=== PATIENT | male | born 1995 ===

== ENCOUNTER 2022-01-27 20:47 | Inpatient (IN) | payer MEDICARE, MEDICAID ==
[2022-01-27] MEDS ORDERED: ACETAMINOPHEN TAB 325 MG TAB PO PRN (23:21)
[2022-01-27] MEDS ORDERED: MAG HYDROX/AL HYDROX/SIMETH 30 ML CUP PO PRN (23:21)
[2022-01-27] MEDS ORDERED: MAGNESIUM HYDROXIDE 2,400 MG/10 ML CUP PO PRN (23:21)
[2022-01-27] MEDS ORDERED: hydrOXYzine HCL 50 MG/ML 1 ML VIAL IM PRN (23:23)
[2022-01-27] MEDS ORDERED: OLANZapine 10 MG VIAL IM PRN (23:23)
[2022-01-27] MEDS ORDERED: OLANZapine 5 MG TAB PO PRN (23:23)
[2022-01-27] MEDS ORDERED: hydrOXYzine pamoate 25 MG CAP PO PRN (23:23)
[2022-01-28] MEDS: NICOTINE 14MG/24HR PATCH TRANSDERM SCH (07:54)
[2022-01-28] MEDS ORDERED: DIVALPROEX 250 MG TABLET.DR PO SCH (09:00)
[2022-01-28] MEDS ORDERED: ARIPiprazole 10 MG TAB PO SCH (09:00)
[2022-01-28] MEDS ORDERED: OLANZapine 2.5 MG TAB PO STA (11:51)
--- NOTE | 2022-01-28 13:47 | P.HP ---
Psychiatric H&P - . H&P Date: 01/28/22 History & Physical: Allergies Allergy/AdvReac Type Severity Reaction Status Date / Time haloperidol [From Haldol] Allergy Unknown Verified 01/27/22 23:21 Vital Signs Temp 96.9 F L 01/28/22 05:22 Pulse 97 01/28/22 05:22 Resp 18 01/28/22 05:22 BP 116/72 01/28/22 05:22 Pulse Ox 98 01/28/22 05:22 FiO2 Intake & Output 01/27/22 01/28/22 01/28/22 18:59 06:59 18:59 Weight 63.5 kg Laboratory Last Values TSH 3.940 mIU/L (0.465-4.680) 01/28/22 09:11 01/28/22 13:47 IDENTIFYING DATA: Patient is a single, unemployed on SSI, 26-year-old male with significant history of polysubstance abuse and schizoaffective disorder who presents to our hospital from [facility] under petition and certification for psychotic behavior. HPI: Patient presented to the hospital on 01/27/2022, brought in from [facility] under petition certification for bizarre behavior. As per petition filled out by the special police officer, the patient reported that "Derrick is hallucinating and talking to himself. He has referenced several times. He could not remember his name on location at the scene. As per initial certification filled out by the emergency physician, the patient is reported to be having auditory and visual hallucinations and responding to internal stimuli. Upon evaluation on the psychiatric unit, the patient is currently denying any suicidal or homicidal ideation, intention, and/or plan. The patient reports that he was acting bizarre in her knowledge as this. He states that he was having a conversation with himself regarding the use of plastics and how they may replace current currency. He does acknowledge that he was doing this outside of the [facility] which caused people to feel concerned about his mental well- being. He reports recent crack cocaine use however denies that he was under the influence of crack cocaine at the time. He does report that he was likely "high for marijuana. " Upon evaluation on our psychiatric unit, the patient is currently not reporting any paranoid delusions or visual hallucinations. He does however report auditory hallucinations in the form of "God talking to me." He states that God tells him things when he prays. He states that this is as if this provider is speaking to him as well. He is otherwise not reporting any other delusional thoughts at this time. In regards to recent stressors, the patient reports that he was in custodial for one month and has been homeless since being out of custodial. He also reports that prior to coming to this hospital, he was in [place] for 6 days. He is agreeable to sign himself voluntarily to the psychiatric unit and to start medications. He reports a desire to go to inpatient substance abuse rehabilitation for his crack cocaine use after this admission. PAST PSYCHIATRIC HISTORY: Patient states that he has presented diagnosed with schizoaffective disorder, bipolar type. The patient recalls being previously prescribed Depakote, Abilify, Haldol, and lithium. Reports "30-40 inpatient psychiatric admissions." He states that his last inpatient admission was at [facility]. The patient reports 3 prior attempts at suicide including jumping in front of a truck, lying down on the road, and attempting to drown himself in the day emmanuel. PMH: No reported medical history or concerns as per patient ALLERGIES: Haloperidol CHEMICAL DEPENDENCY HISTORY: The patient reports that he smokes a half a pack per day of tobacco. He denies any alcohol use. He reports he uses marijuana twice per week. He states that he uses crack cocaine every week. He first began using crack cocaine when he was 23 years old. He reports that he has been in inpatient rehab for his crack cocaine use at least 12 times. FAMILY PSYCHIATRIC/SUBSTANCE USE HISTORY: No reported family psychiatric history. SOCIAL HISTORY: Patient was born in [place] and raised in [place], [place]. The patient is single, never , and has no children. He currently rec eives Social Security. He is currently homeless and spends his time either living in a three-quarter house, custodial, rehab, or psychiatric units. He states that he is a Protestant. He reports no ongoing legal issues at this time however does report a history of incarceration for assaulting a special police officer. MENTAL STATUS EXAM: General Appearance: Patient appears to be stated age is alert, directable, and attempts to cooperate. Patient appears to have fair hygiene and grooming. Behavior: Patient is seated without any agitated behavior. Slightly elevated psychomotor activity. Speech: Patient's speech is fluent and nonpressured. Mood/Affect: Patient reports their mood is "feeling okay," affect is congruent and slightly expansive. Suicidality/Homicidality: Patient is vehemently denying any suicidal or homicidal ideation. Perceptions: Patient denies any visual hallucinations ever, the patient does endorse auditory hallucinations in the form of "God speaks to me." Though content/process: Patient does have some scientologist preoccupation however no other delusional thought content is endorsed. Thought process appears to be linear and logical otherwise. Memory and concentration: AOX3, grossly intact for the purposes of this session. Can spell "WORLD" backwards Judgment and insight: Fair STRENGTHS/WEAKNESSES: Strength is that the patient is resilient and resourceful. Weakness is that the patient engages in frequent crack cocaine use. INTELLECT: average IMPRESSIONS: Schizoaffective disorder, bipolar type Cocaine use disorder Tobacco use disorder PLAN: -Patient is admitted under involuntary however converted to voluntary status to MHU for stabilization of psychiatric symptoms and safety. Patient signed adult voluntary form and medication consent and is placed in patient's chart. -Medications : Will start patient on Depakote 500 mg by mouth twice a day for mood stabilization Zyprexa 2.5 mg by mouth every morning and 5 mg by mouth daily at bedtime for mood stabilization/psychosis -Vistaril and Zyprexa PRN for agitation/aggression -Patient was counselled on substance abuse and desired to cut back on use -Patient was informed of the risks, benefits and side effects of the medication and patient verbally consented to taking the medications. Patient signed med consent form and was placed in chart. -Internal Medicine consult to perform medical evaluation and physical. -NRT - nicotine patch -SW on board for discharge planning. Encourage patient to participate in groups to work on coping skills.
[2022-01-28 16:28] LABS: Chol/HDL Ratio 2.77 Ratio; LDL Cholesterol,Calculated 48.2 mg/dL (0.0-131.0)
[2022-01-28] MEDS: DIVALPROEX 500 MG TABLET.DR PO SCH (19:42)
[2022-01-28] MEDS ORDERED: OLANZapine 5 MG TAB PO SCH (21:00)
--- NOTE | 2022-01-29 06:50 | P.MDCNMH ---
History of Present Illness H&P Date: 01/28/22 Chief Complaint: Aggressive behavior 26-year-old male with schizophrenia, bipolar disorder Patient is currently homeless there was brought in for evaluation due to aggressive behavior patient denies any homicidal or suicidal ideation at this time he denies any hallucinations. He denies any medical concerns denies any fevers chills nausea vomiting chest pain trouble breathing coughing He admits to tobacco smoking denies any illicit drugs or alcohol Review of Systems Pertinent positives as noted in HPI. All other systems were reviewed and are negative Past Medical History Smoking Status: Current every day smoker - Past Family History Family Additional Family Medical History / Comment(s): Denies any history of coronary artery disease Medications and Allergies Home Medications Medication Instructions Recorded Confirmed Type ARIPiprazole [Abilify] 10 mg PO DAILY 01/27/22 01/27/22 History Divalproex [Depakote] 250 mg PO TID 01/27/22 01/27/22 History Allergies Allergy/AdvReac Type Severity Reaction Status Date / Time haloperidol [From Haldol] Allergy Unknown Verified 01/27/22 23:21 Physical Exam Constitutional: No acute distress, conversant, pleasant Eyes: Anicteric sclerae, moist conjunctiva, Pupils equal round reactive to light ENMT: NC/AT Oropharynx clear, no erythema, or exudates Neck: Supple, FROM, no masses, or JVD No carotid bruits No thyromegaly Lungs: Clear to auscultation Clear to percussion Normal respiratory effort, no accessory muscle use Cardiovascular: Heart regular in rate and rhythm, No murmurs, gallops, or rubs No peripheral edema Abdominal: Soft Nontender, no guarding, rebound or rigidity Abdomen moving with respiration Normoactive bowel sounds No hepatomegaly, No splenomegaly No palpable mass No abdominal wall hernia noted Skin: Normal temperature, tone, texture, turgor No induration No subcutaneous nodules No rash, lesions No ulcers Extremities: No digital cyanosis No clubbing Pedal pulses intact and symmetrical Radial pulses intact and symmetrical No calf tenderness Psychiatric: Alert and oriented to person, place and time Neuro Muscles Strength 5/5 in all 4 extremities Sensation to light touch grossly present throughout Cranial nerves II-XII grossly intact No focal sensory deficits Lymphatics: no palpable cervical or supraclavicular , or inguinal lymph nodes Cranial Nerve Examination - Cranial Nerves Cranial Nerve II- Optic: Intact Cranial Nerve III- Oculomotor: Intact Cranial Nerve IV- Trochlear: Intact Cranial Nerve V- Trigeminal: Intact Cranial Nerve - Abducens: Intact Cranial Nerve VII- Facial: Intact Cranial Nerve VIII- Auditory: Intact Cranial Nerve IX- Glossopharyngeal: Intact Cranial Nerve X- Vagus: Intact Cranial Nerve XI- Accessory: Intact Cranial Nerve XII- Hypoglossal: Intact Results Labs: Abnormal Lab Results - Last 24 Hours (Table) 01/28/22 Range/Units 09:11 HDL Cholesterol 39.40 L (40.00-60.00) mg/dL Assessment and Plan Assessment: Schizophrenia bipolar disorder Aggressive behavior Management per psych Tobacco smoking counseled to quit smoking Follow-up labs Thank you for allowing us to participate in the care of this patient. We will follow peripherally. Do not hesitate to contact us with questions. Someone can be reached from the [facility] hospitalist group at all hours of the day at [phone].
[2022-01-29] MEDS: NICOTINE 14MG/24HR PATCH TRANSDERM SCH (07:56)
[2022-01-29] MEDS: DIVALPROEX 500 MG TABLET.DR PO SCH ×2 (07:57→20:00)
[2022-01-29] MEDS: MULTIVITAMINS, THERA 1 EACH TAB PO SCH (07:57)
[2022-01-29] MEDS ORDERED: OLANZapine 5 MG TAB PO STA (09:40)
--- NOTE | 2022-01-29 11:39 | P.PN ---
Progress Note - Text Progress Note Date: 01/29/22 Interval History: Patient was seen attending groups and was directable and agreeable to speak with ad copy writer in the office. Currently, the patient is denying any suicidal or homicidal ideation, intention, and/or plan. The patient continues to report that he is able to talk to God however is not reporting any other delusional thoughts or any other hallucinations. He has been adherent with his medications and is not reporting any significant side effects. He reports an improved appetite and improved sleep. The patient states that he wants to be an EMT in the future and is inquiring whether he can be one if he has a felony record. Mental Status Exam: General Appearance: Patient appears to be stated age is alert, directable, and cooperative. Behavior: Patient is calmly seated without any agitated behavior. Speech: Patient's speech is fluent and nonpressured. Mood/Affect: Mood is improving mildly, affect is congruent and expansive. Suicidality/Homicidality: Patient denies having any suicidal or homicidal ideation intent or plan. Perceptions: Patient denies any visual hallucinations but continues to report auditory hallucinations. Though content/process: She continues to have some voodoo preoccupation however is mostly linear and logical in conversation. Memory and concentration: AOX3, grossly intact for the purposes of this session Judgment and insight: Improving mildly Vital Signs Temp 97.4 F L 01/29/22 06:35 Pulse 74 01/29/22 06:35 Resp 16 01/29/22 06:35 BP 130/60 01/29/22 06:35 Pulse Ox 98 01/28/22 05:22 FiO2 Laboratory Results - Last 24 Hours 01/28/22 01/28/22 09:11 09:[address] Glu mg/dL 110 Hemoglobin A1c 5.5 Triglycerides 107.00 Cholesterol 109.00 LDL Cholesterol, Calc 48.2 VLDL Cholesterol, Calc 21.40 HDL Cholesterol 39.40 L Cholesterol/HDL Ratio 2.77 Assessment Schizoaffective disorder, bipolar type Cocaine use disorder Tobacco use disorder Plan: -Patient continues to meet criteria for inpatient psychiatric admission for symptom stabilization and safety. Patient has signed adult voluntary form and medication consent and was placed in patient's chart. -Medications: Depakote 500 mg by mouth twice a day for mood stabilization Zyprexa 5 mg by mouth twice a day for mood stabilization/psychosis -When necessary Vistaril and Zyprexa for agitation/aggression. -NRT - nicotine patch -SW on board for discharge planning. Encouraged the patient to participate in milieu.
[2022-01-29] MEDS: OLANZapine 5 MG TAB PO SCH (20:00)
[2022-01-30] MEDS: MULTIVITAMINS, THERA 1 EACH TAB PO SCH (07:52)
[2022-01-30] MEDS: NICOTINE 14MG/24HR PATCH TRANSDERM SCH (07:52)
[2022-01-30] MEDS: DIVALPROEX 500 MG TABLET.DR PO SCH ×2 (07:52→21:07)
[2022-01-30] MEDS: OLANZapine 5 MG TAB PO SCH ×2 (07:52→21:07)
[2022-01-30 10:35] LABS: ALT 15 U/L (4-49); AST 23 U/L (17-59); African American GFR (CKD) >90 (>60 ml/min/1.73 sqM); Albumin 4.1 g/dL (3.5-5.0); Alkaline Phosphatase 89 U/L (38-126); Anion Gap 13 mmol/L; Blood Urea Nitrogen 15 mg/dL (9-20); Calcium 9.2 mg/dL (8.4-10.2); Carbon Dioxide 29 mmol/L (22-30); Chloride 98 mmol/L (98-107); Glucose 77 mg/dL (74-99); Non-African American GFR(CKD) >90 (>60 ml/min/1.73 sqM); Sodium 140 mmol/L (137-145); Total Bilirubin 0.3 mg/dL (0.2-1.3); Total Protein 7.1 g/dL (6.3-8.2)
[2022-01-30 10:40] LABS: Valproic Acid (Depakene) 107.8 ug/mL
--- NOTE | 2022-01-30 11:17 | P.PN ---
Progress Note - Text Progress Note Date: 01/30/22 Interval History: Patient was seen attending groups and was directable and agreeable to speak with promotion writer in the office. The patient reports that he is doing well. He is currently denying any suicidal or homicidal ideation, intention, and/or plan. He continues to report that he is able to talk to God but otherwise is not reporting any other psychotic thought content. He has been adherent with his medication and is not reporting any significant side effects. He has been participating both in individual and milieu therapies with the high-level participation. The patient is scheduled for an intake at [facility] for rehabilitation for his cocaine use on Wednesday. Mental Status Exam: General Appearance: Patient appears to be stated age is alert, directable, and cooperative. Behavior: Patient is calmly seated without any agitated behavior. Speech: Patient's speech is fluent and nonpressured. Mood/Affect: Mood is improving mildly, affect is congruent and expansive. Suicidality/Homicidality: Patient denies having any suicidal or homicidal ideation intent or plan. Perceptions: Patient denies any visual hallucinations but continues to report auditory hallucinations. Though content/process: She continues to have some restoration preoccupation however is mostly linear and logical in conversation. Memory and concentration: AOX3, grossly intact for the purposes of this session Judgment and insight: Fair Vital Signs Temp 96.9 F L 01/30/22 07:08 Pulse 64 01/30/22 07:08 Resp 18 01/30/22 07:08 BP 116/72 01/30/22 07:08 Pulse Ox 98 01/29/22 20:01 FiO2 Laboratory Results - Last 24 Hours 01/30/22 09:32 Sodium 140 Potassium 5.0 Chloride 98 Carbon Dioxide 29 Anion Gap 13 BUN 15 Creatinine 0.93 Est GFR (CKD-EPI)AfAm >90 Est GFR (CKD-EPI)NonAf >90 Glucose 77 Calcium 9.2 Total Bilirubin 0.3 AST 23 ALT 15 Alkaline Phosphatase 89 Total Protein 7.1 Albumin 4.1 Valproic Acid 107.8 Assessment Schizoaffective disorder, bipolar type Cocaine use disorder Tobacco use disorder Plan: -Patient continues to meet criteria for inpatient psychiatric admission for symptom stabilization and safety. Patient has signed adult voluntary form and medication consent and was placed in patient's chart. -Medications: We will decrease Depakote to 250 mg in the morning and 500 mg at bedtime due to an elevated valproic acid. Zyprexa 5 mg by mouth twice a day for mood stabilization/psychosis -When necessary Vistaril and Zyprexa for agitation/aggression. -NRT - nicotine patch -SW on board for discharge planning. Encouraged the patient to participate in milieu.
[2022-01-31] MEDS: NICOTINE 14MG/24HR PATCH TRANSDERM SCH (08:14)
[2022-01-31] MEDS: MULTIVITAMINS, THERA 1 EACH TAB PO SCH (08:14)
[2022-01-31] MEDS: DIVALPROEX 250 MG TABLET.DR PO SCH (08:14)
[2022-01-31] MEDS: OLANZapine 5 MG TAB PO SCH (08:14)
--- NOTE | 2022-01-31 12:31 | P.PN ---
Subjective Progress Note Date: 01/31/22 Principal diagnosis: polysubstance abuse and schizoaffective disorder Subjective: The patient says that he is hopeful about the rehab. He says when he uses cocaine he feels good about himself until he comes down again. He knows that it is going to be difficult to stay off. He was wondering how he gets from this hospital to the rehab facility. (This shows some forward thinking in practical solution of problems).. He did ask if his Zyprexa could be increased says he has racing thoughts some anxiety and still feels some paranoia. He denies suicidality. Objective: He talks a little loud a lot of gestures but came readily. Affect is tense. Content made sense. He was carrying a Bible" and a book and said he is trying to get back on track with his connor. He is alert, reasonable response times, sat throughout the session without restlessness. No signs of psychosis. Assessment: He has a strong history of psychosis in the past course using drugs doesn't help any as I can make it look psychotic too. He seems to be calming down and starting to commit to the process of rehab. Plan: No change except increase the Zyprexa at night Objective - Vital Signs Vital signs: Vital Signs Temp 97.8 F 01/31/22 05:29 Pulse 113 H 01/31/22 05:29 Resp 16 01/31/22 05:29 BP 119/66 01/31/22 05:29 Pulse Ox 99 01/31/22 05:29 FiO2 - Labs CBC & Chem 7: 01/30/22 09:32
[2022-01-31] MEDS: DIVALPROEX 500 MG TABLET.DR PO SCH (20:58)
[2022-01-31] MEDS: OLANZapine 10 MG TAB PO SCH (20:58)
[2022-02-01] MEDS: MULTIVITAMINS, THERA 1 EACH TAB PO SCH (08:41)
[2022-02-01] MEDS: OLANZapine 5 MG TAB PO SCH (08:41)
[2022-02-01] MEDS: NICOTINE 14MG/24HR PATCH TRANSDERM SCH (08:42)
[2022-02-01] MEDS: DIVALPROEX 250 MG TABLET.DR PO SCH (09:06)
--- NOTE | 2022-02-01 09:22 | P.PN ---
Subjective Progress Note Date: 02/01/22 Principal diagnosis: polysubstance abuse and schizoaffective disorder Subjective: The patient says that he is hopeful about the rehab. He tolerated the increase in Zyprexa last night. His Depakote level is fine so I didn't touched that the 2 together helping him calm down. Denies any suicidal thoughts. Is appropriately anxious about his future and doing well but hopeful as well. Objective: He was cooperative, had good eye contact, does not seem to have the pressured speech she had yesterday stays on topic better.. Affect is serious but not tense. Content makes sense. He is alert, has reasonable response times, sat throughout the session without restlessness. No signs of psychosis. Assessment: His psychosis seems to be under good control he does not seem to be nervous or pacing or having severe withdrawal. He seems to be calming down and starting to commit to the process of rehab. Plan: Continue Zyprexa 5 in the morning and 10 at night eventually move that to just 15 at night continue Depakote as is. Objective - Vital Signs Vital signs: Vital Signs Temp 97.9 F 02/01/22 06:37 Pulse 55 L 02/01/22 06:37 Resp 14 02/01/22 06:37 BP 120/55 02/01/22 06:37 Pulse Ox 99 01/31/22 05:29 FiO2 - Labs CBC & Chem 7: 01/30/22 09:32
[2022-02-01] MEDS: DIVALPROEX 500 MG TABLET.DR PO SCH (20:55)
[2022-02-01] MEDS: OLANZapine 10 MG TAB PO SCH (20:56)
[2022-02-02] MEDS: OLANZapine 5 MG TAB PO SCH (08:59)
[2022-02-02] MEDS: DIVALPROEX 250 MG TABLET.DR PO SCH (08:59)
[2022-02-02] MEDS: NICOTINE 14MG/24HR PATCH TRANSDERM SCH (08:59)
[2022-02-02] MEDS: MULTIVITAMINS, THERA 1 EACH TAB PO SCH (08:59)
--- NOTE | 2022-02-02 12:23 | P.PN ---
Progress Note - Text Progress Note Date: 02/02/22 Interval History: Patient was seen attending groups and was directable and agreeable to speak with expert medical writer in the office. The patient continues to report that he is doing well. He reports that the weekend went well. He is not reporting any suicidal or homicidal ideation, intention, and/or plan. He is not reporting any auditory or visual hallucinations. He has been adherent with his medications and is not reporting any significant side effects. He is scheduled for intake at rehab tomorrow morning. Mental Status Exam: General Appearance: Patient appears to be stated age is alert, directable, and cooperative. Behavior: Patient is calmly seated without any agitated behavior. Speech: Patient's speech is fluent and nonpressured. Mood/Affect: Mood is improving mildly, affect is congruent and euthymic. Suicidality/Homicidality: Patient denies having any suicidal or homicidal ideation intent or plan. Perceptions: Patient denies any visual hallucinations but continues to report auditory hallucinations. Though content/process: He reports no delusional thought content today. He is linear and logical in short conversation. Memory and concentration: AOX3, grossly intact for the purposes of this session Judgment and insight: Fair Vital Signs Temp 97.9 F 02/01/22 06:37 Pulse 55 L 02/01/22 06:37 Resp 14 02/01/22 06:37 BP 120/55 02/01/22 06:37 Pulse Ox 99 01/31/22 05:29 FiO2 Assessment Schizoaffective disorder, bipolar type Cocaine use disorder Tobacco use disorder Plan: -Patient continues to meet criteria for inpatient psychiatric admission for symptom stabilization and safety. Patient has signed adult voluntary form and medication consent and was placed in patient's chart. -Medications: Depakote 250 mg in the morning and 500 mg at bedtime due to an elevated valproic acid. Zyprexa 5 mg by mouth in the morning and 10 mg at bedtime for mood stabilization/psychosis -When necessary Vistaril and Zyprexa for agitation/aggression. -NRT - nicotine patch -SW on board for discharge planning. Encouraged the patient to participate in milieu.
[2022-02-02] MEDS: OLANZapine 10 MG TAB PO SCH (20:03)
[2022-02-02] MEDS: DIVALPROEX 500 MG TABLET.DR PO SCH (20:03)
[2022-02-03 07:12] VITALS: BP 124/77; PULSE 61; RESP 17; TEMP 98.6
[2022-02-03] MEDS: OLANZapine 5 MG TAB PO SCH (08:15)
[2022-02-03] MEDS: MULTIVITAMINS, THERA 1 EACH TAB PO SCH (08:15)
[2022-02-03] MEDS: DIVALPROEX 250 MG TABLET.DR PO SCH (08:15)
[2022-02-03] MEDS: NICOTINE 14MG/24HR PATCH TRANSDERM SCH (08:16)
--- NOTE | 2022-02-03 11:32 | P.DS ---
Providers Date of admission: 01/27/22 23:00 Expected date of discharge: 02/03/22 Attending physician: Asad Charles MD Consults: 01/27/22 23:21 Consult Physician Routine Consulting Provider: Myron Goldman Consult Reason/Comments: H&P and medical Do you want consulting provider notified?: Yes Primary care physician: Stated None - Discharge Diagnosis(es) (1) Schizoaffective disorder, bipolar type Status: Acute Priority: High (2) Cocaine use disorder Status: Chronic Priority: Medium (3) Tobacco use disorder Status: Chronic Priority: Medium Hospital Course: Admission HPI: Patient is a single, unemployed on SSI, 26-year-old male with significant history of polysubstance abuse and schizoaffective disorder who pres ents to our hospital from [facility] under petition and certification for psychotic behavior. Patient presented to the hospital on 01/27/2022, brought in from [facility] under petition certification for bizarre behavior. As per petition filled out by the police officer crime prevention, the patient reported that "Derrick is hallucinating and talking to himself. He has referenced several times. He could not remember his name on location at the scene. As per initial certification filled out by the emergency physician, the patient is reported to be having auditory and visual hallucinations and responding to internal stimuli. Upon evaluation on the psychiatric unit, the patient is currently denying any suicidal or homicidal ideation, intention, and/or plan. The patient reports that he was act ing bizarre in her knowledge as this. He states that he was having a conversation with himself regarding the use of plastics and how they may replace current currency. He does acknowledge that he was doing this outside of the [facility] which caused people to feel concerned about his mental well-being. He reports recent crack cocaine use however denies that he was under the influence of crack cocaine at the time. He does report that he was likely "high for marijuana. " Upon evaluation on our psychiatric unit, the patient is currently not reporting any paranoid delusions or visual hallucinations. He does however report auditory hallucinations in the form of "God talking to me." He states that God tells him things when he prays. He states that this is as if this provider is speaking to him as well. He is otherwise not reporting any other delusional thoughts at this time. In regards to recent stressors, the patient reports that he was in long-term for one month and has been homeless since being out of long-term. He also reports that prior to coming to this hospital, he was in [place] for 6 days. He is agreeable to sign himself voluntarily to the psychiatric unit and to start medications. He reports a desire to go to inpatient substance abuse rehabilitation for his crack cocaine use after this admission. Patient states that he has presented diagnosed with schizoaffective disorder, bipolar type. The patient recalls being previously prescribed Depakote, Abilify, Haldol, and lithium. Reports "30-40 inpatient psychiatric admissions." He states that his last inpatient admission was at [facility]. The patient reports 3 prior attempts at suicide including jumping in front of a truck, lying down on the road, and attempting to drown himself in the day emmanuel. Hospital course: Upon admission to the unit patient was initially cooperative albeit expansive with elevated psychomotor activity. Patient was however directable and agreeable to commence treatment. Patient got along well with other patients on the unit and followed unit protocol. Patient was compliant with the medications and denied any side effects throughout hospital course. Patient was started on Depakote and Zyprexa for mood stabilization and psychosis. Patient spoke of his stressors and engaged in therapy both group and individual. Patient was also seen by medical team for history and physical exam. We'll request the hospitalization, the patient's medications were gradually titrated to stabilize his mood. Depakote level was elevated and therefore his Depakote was decreased to final dose of 2050 mg in the morning and 500 mg at bedtime. On this regimen of Depakote and Zyprexa, the patient is but significant improvement in regards his target symptoms of fatimah. On the day of discharge, the patient is not reporting any suicidal or homicidal ideation, intention, and/or plan. He is not reporting any access to firearms or other weapons. He denies any auditory or visual hallucinations. He reports no paranoia or other delusions. The patient has been adherent with his medication is not reporting any significant side effects. The patient does have a significant history of crack cocaine use and w as counseled at great length on abstaining from all substances including alcohol and marijuana. The patient was agreeable to going to inpatient substance abuse rehabilitation after discharge. He will be going to [facility]. The patient was counseled on his medications and the need for regular compliance and was encouraged to follow-up with his outpatient appointments for mental health and for primary care. Prior to discharge, family meeting was arranged by social welfare administrator to answer any questions and ensure safety. Mental status exam: General Appearance: Patient appears to be stated age is alert, pleasant, and cooperative. Patient is in no acute distress and has fair hygiene and grooming. Short and thin build. Behavior: Patient is calmly seated without any agitated behavior. Speech: Patient's speech is fluent and nonpressured. Mood/Affect: Patient reports their mood is "good", affect is congruent and euthymic to bright. Suicidality/Homicidality: Patient denies having any suicidal or homicidal ideation intent or plan. Perceptions: Patient denies any auditory or visual hallucinations. Though content/process: There is no evidence of any delusional thought content and thought process is linear and goal-directed. more future oriented Memory and concentration: AOX3, grossly intact for the purposes of this session. Can spell "WORLD" backwards correctly. Judgment and insight: Improved with guarded prognosis Impression: Schizoaffective disorder, bipolar type Cocaine use disorder Tobacco use disorder Plan: -Continue with discharge today as patient has improved and stabilized psychiatrically and is not currently an imminent threat to himself and/or others. Patient will remain at chronically elevated risk for harm to self and/or others due to his impulsivity and polysubstance abuse. -Continue medications: Depakote 250 mg in the morning and 500 mg at bedtime for mood stabilization Zyprexa 5 mg in the morning and 10 mg at bedtime for mood stabilization/psychosis Habitrol patch for nicotine cessation Multivitamin -Patient was counseled on the need for medication compliance and appropriate follow-up at mental health and also primary care for medical issues. Patient verbalized understanding and agreed. -Social work to arrange for and conduct family meeting to ensure safety upon discharge and answer any questions/concerns. Social work also to arrange for patients follow up appointments for psychiatric care along with follow up with primary care provider. -Patient counseled on abstaining from recreational drugs and marijuana and alcohol. Was informed/educated on the adverse effects on their physical and mental health. Patient verbally agreed and understood. Patient will be going to [facility] for rehab. -Patient was instructed to return to the hospital or seek immediate medical care if their psychiatric or medical symptoms do worsen or reoccur. -Psychoeducation and supportive therapy provided to patient. Risks and benefits of pharmacological treatment versus the risks and benefits of nontreatment weight and discussed. Informed consent discussion held. Common side effects of psychotropics discussed such as, but not limited to headache, GI disturbance, sexual dysfunction, movement disorders, sedation, and orthostatic hypotension. Life threatening and blackbox warnings of prescribed medications also discussed. Potential risks of operating a vehicle or heavy machinery discussed with patient at length. Advised on importance of compliance and a reliable and responsible manner. Patient advised to review FDA consumer labeling of all me dications prior to taking. Patient verbalized understanding of potential risks, and agrees with current treatment plan. Patient advised to medically contact physician/emergency personnel if any acute changes in condition occur. Vital Signs Temp 98.6 F 02/03/22 06:30 Pulse 61 02/03/22 06:30 Resp 17 02/03/22 06:30 BP 124/77 02/03/22 06:30 Pulse Ox 99 02/03/22 06:30 FiO2 Laboratory Results Sodium 140 mmol/L (137-145) 01/30/22 09:32 Potassium 5.0 mmol/L (3.5-5.1) 01/30/22 09:32 Chloride 98 mmol/L (98-107) 01/30/22 09:32 Carbon Dioxide 29 mmol/L (22-30) 01/30/22 09:32 Anion Gap 13 mmol/L 01/30/22 09:32 BUN 15 mg/dL (9-20) 01/30/22 09:32 Creatinine 0.93 mg/dL (0.66-1.25) 01/30/22 09:32 Est GFR (CKD-EPI)AfAm >90 (>60 ml/min/1.73 sqM) 01/30/22 09:32 Est GFR (CKD-EPI)NonAf >90 (>60 ml/min/1.73 sqM) 01/30/22 09:32 Glucose 77 mg/dL (74-99) 01/30/22 09:[address] Glu mg/dL 110 01/28/22 09:11 Hemoglobin A1c 5.5 % (0.0-6.0) 01/28/22 09:11 Calcium 9.2 mg/dL (8.4-10.2) 01/30/22 09:32 Total Bilirubin 0.3 mg/dL (0.2-1.3) 01/30/22 09:32 AST 23 U/L (17-59) 01/30/22 09:32 ALT 15 U/L (4-49) 01/30/22 09:32 Alkaline Phosphatase 89 U/L (38-126) 01/30/22 09:32 Total Protein 7.1 g/dL (6.3-8.2) 01/30/22 09:32 Albumin 4.1 g/dL (3.5-5.0) 01/30/22 09:32 Triglycerides 107.00 mg/dL (0.00-149.00) 01/28/22 09:11 Cholesterol 109.00 mg/dL (0.00-200.00) 01/28/22 09:11 LDL Cholesterol, Calc 48.2 mg/dL (0.0-131.0) 01/28/22 09:11 VLDL Cholesterol, Calc 21.40 mg/dL (5.00-40.00) 01/28/22 09:11 HDL Cholesterol 39.40 mg/dL (40.00-60.00) L 01/28/22 09:11 Cholesterol/HDL Ratio 2.77 Ratio 01/28/22 09:11 TSH 3.940 mIU/L (0.465-4.680) 01/28/22 09:11 Valproic Acid 107.8 ug/mL 01/30/22 09:32 Allergies Allergy/AdvReac Type Severity Reaction Status Date / Time haloperidol [From Haldol] Allergy Unknown Verified 01/27/22 23:21 Patient Condition at Discharge: Stable Plan - Discharge Summary Discharge Rx Participant: No New Discharge Prescriptions: New Divalproex [Depakote] 500 mg PO HS 30 Days tab Divalproex [Depakote] 250 mg PO DAILY 30 Days tab OLANZapine [ZyPREXA] 10 mg PO HS 30 Days tab OLANZapine [ZyPREXA] 5 mg PO DAILY 30 Days tab Nicotine 14Mg/24Hr Patch [Habitrol] 1 patch TRANSDERM DAILY 30 Days patch Multivitamins, Thera [Multivitamin (formulary)] 1 each PO DAILY 30 Days tab Discontinued ARIPiprazole [Abilify] 10 mg PO DAILY Divalproex [Depakote] 250 mg PO TID Discharge Medication List Divalproex [Depakote] 250 mg PO DAILY 30 Days tab 02/02/22 [Rx] Divalproex [Depakote] 500 mg PO HS 30 Days tab 02/02/22 [Rx] Multivitamins, Thera [Multivitamin (formulary)] 1 each PO DAILY 30 Days tab 02/02/22 [Rx] Nicotine 14Mg/24Hr Patch [Habitrol] 1 patch TRANSDERM DAILY 30 Days patch 02/02/22 [Rx] OLANZapine [ZyPREXA] 5 mg PO DAILY 30 Days tab 02/02/22 [Rx] OLANZapine [ZyPREXA] 10 mg PO HS 30 Days tab 02/02/22 [Rx] [facility]ment[facility] - 02/03/22 10:00 am (Pt approved for [facility], pt appt 02/03/22 10:00) Patient Instructions/Handouts: How to Stop Smoking (DC), Schizoaffective Disorder (DC) Activity/Diet/Wound Care/Special Instructions: Avoid the use of street drugs and alcohol. Take all prescriptions as prescribed. When you are in need of refills on your medications, please contact your medical provider and/or outpatient psychiatrist to have this done. Please go to scheduled outpatient appointment for aftercare treatment. If symptoms return or become worse, call the crisis line at and/or go to the nearest emergency room for evaluation. Discharge Disposition: OTHER INSTITUTION NOT DEFINED
== END 2022-02-03 09:45 | DRG 885 ==
LOC: 3MHU 23:00
PROVIDERS: ADMIT Psychiatry & Neurology Psychiatry; ATTEND Psychiatry & Neurology Psychiatry
DX: F25.0 Schizoaffective disorder, bipolar type (principal); F14.10 Cocaine abuse, uncomplicated; F17.210 Nicotine dependence, cigarettes, uncomplicated; Z56.0 Unemployment, unspecified; Z59.00 Homelessness unspecified; Z79.899 Other long term (current) drug therapy; Z65.3 Problems related to other legal circumstances; Z91.51 Personal history of suicidal behavior; Z71.6 Tobacco abuse counseling; Z71.89 Other specified counseling
CPT/HCPCS: 80053; 80061; 80164; 83036; 84443

== ENCOUNTER 2022-02-06 18:15 | Inpatient (IN) | payer MEDICARE, MEDICAID ==
[2022-02-06] MEDS ORDERED: MAGNESIUM HYDROXIDE 2,400 MG/10 ML CUP PO PRN (19:38)
[2022-02-06] MEDS ORDERED: MAG HYDROX/AL HYDROX/SIMETH 30 ML CUP PO PRN (19:38)
[2022-02-06] MEDS ORDERED: ACETAMINOPHEN TAB 325 MG TAB PO PRN (19:38)
[2022-02-07] MEDS ORDERED: ARIPiprazole 10 MG TAB PO SCH (09:00)
[2022-02-07] MEDS ORDERED: LORazepam 2 MG/ML INJ IM PRN (12:08)
[2022-02-07] MEDS: DIVALPROEX 250 MG TABLET.DR PO SCH ×3 (13:57→21:01)
[2022-02-07] MEDS: NICOTINE 14MG/24HR PATCH TRANSDERM SCH (14:01)
[2022-02-07] MEDS: LORazepam 1 MG TAB PO PRN (16:54)
[2022-02-08] MEDS: DIVALPROEX 250 MG TABLET.DR PO SCH (08:21)
[2022-02-08] MEDS: NICOTINE 14MG/24HR PATCH TRANSDERM SCH (08:21)
[2022-02-08] MEDS: LORazepam 1 MG TAB PO PRN ×2 (08:22→18:15)
[2022-02-08 11:41] LABS: Chol/HDL Ratio 2.85 Ratio; LDL Cholesterol,Calculated 76.9 mg/dL (0.0-131.0); VLDL Calculation 10.74 mg/dL (5.00-40.00)
--- NOTE | 2022-02-08 15:05 | P.HP ---
Psychiatric H&P - . H&P Date: 02/08/22 History & Physical: IDENTIFYING DATA: Patient is a single, unemployed on SSI, homeless 26-year-old male with significant history of polysubstance abuse and schizoaffective disorder. HPI: Patient presented to the [facility] as a transfer from [facility] under petition and certification for psychotic behavior. Per petition, "patient told the deputy who brought him to the ER that he is suicidal and homicidal. Patient is responding to internal stimuli. Patient is intermittently laughing, smiling, and speaking nonsense." Per initial certification, "Patient exhibits psychosis. Responding to internal stimuli. Labile mood. Pressured and tangential speech. Poor insight and judgment." On arrival to the unit he was restarted on Depakote 250 mg 3 times daily. I evaluated patient today, and he appears to be a fair historian, peers to be minimizing his psychotic and manic symptoms in an attempt to be discharged today. His speech is mildly pressured, and he appears to be engaged in self dialogue as he mumbles repeatedly to himself. His thought process consists of loose associations and is difficult to follow. He is irritable and focused on discharge. He was recently admitted to our MHU from 01/28-02/03/22 for psychosis and was discharged on Depakote 250 mg daily in the morning and 500mg QHS, and Zyprexa 5 mg daily in the morning and 10 mg QHS for psychosis. He went sent to [facility] for residential substance abuse treatment following discharge, however he reports he left [facility] after two days because it "didn't fit him". He states he went to [facility] where he is "homeless". He claims he was compliant with his medications this entire time however this is unlikely given the severity of his symptoms. He reports he was using "weed" that he believed was laced with something. He reports he "blacked out" but that he "didn't have any blood on [his] hands and wasn't in anyone's house" so therefore he does not need to be admitted her for mental health treatment. He derails into other nonsensical dialogue and stats "I believe the body works on its own..." At this time, he denies any suicidal or homicidal ideations, intent or plan. At this time, patient denies any auditory or visual hallucinations, however he does appear to be attending to internal stimuli. Patient admits to using marijuana that is be believes was laced with something. He has a 1-inch abrasion on his forehead but he refuses to state how he got that. He asks for a compliant form so he can write a complaint for the marijuana that was confiscated from him (unclear when this happened). PAST PSYCHIATRIC HISTORY: Diagnosed with schizoaffective disorder, bipolar type. Previous medications: Depakote, Abilify, Haldol, and lithium. Hospitalizations: Per chart, "30-40 inpatient psychiatric admissions." Most recently at [facility], and also at [facility] last week (01/28- 02/03/22 for psychosis and was discharged on Depakote 250 mg daily in the morning and 500mg QHS, and Zyprexa 5 mg daily in the morning and 10 mg QHS for psychosis) Suicide attempts: 3 prior attempts at suicide including jumping in front of a truck, lying down on the road, and attempting to drown himself in the day emmanuel. PMH: Denies ALLERGIES: as per EMR CHEMICAL DEPENDENCY HISTORY: The patient reports that he smokes a half a pack per day of tobacco. He denies any alcohol use. He reports he uses marijuana twice per week. He previously reported that he uses crack cocaine every week. He first began using crack cocaine when he was 23 years old. He reports that he has been in inpatient rehab for his crack cocaine use at least 12 times. He was at [facility] last week but left after 2 days. FAMILY PSYCHIATRIC/SUBSTANCE USE HISTORY: No reported family psychiatric history. SOCIAL HISTORY: Patient was born in [place] and raised in [place], [place]. The patient is single, never , and has no children. He currently receives Social Security Disability for mental health. He is currently homeless, recently was inpatient at rehab at [facility] but left after a two days. 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 MENTAL STATUS EXAM: General Appearance: Patient appears to be stated age, has a 1-inch abrasion on his forehead, dressed in sweats, fair hygiene and grooming. Behavior: Patient is seated without any agitated behavior, but is intrusive, evasive and demanding. Speech: Patient's speech is fluent and pressured. Mood/Affect: Patient reports their mood is "I'm fine" but appears irritable, affect is incongruent and constricted. Suicidality/Homicidality: Patient denies having any homicidal ideation intent or plan. Denies any suicidal ideations, intent or plan. Perceptions: Patient denies any visual hallucinations and denies any auditory hallucinations Thought process: Rambling, loose associations Though content/process: There is evidence of paranoid delusional thought content. Memory and concentration: AOX3, grossly intact for the purposes of this session. Judgment and insight: Poor STRENGTHS/WEAKNESSES: Strength is that patient is resilient. Weakness is that patient is impulsive and has long history of substance abuse. INTELLECT: Average IMPRESSIONS: Schizoaffective disorder, bipolar type Cocaine use disorder Cannabis use disorder Tobacco use disorder PLAN: -Patient is admitted under involuntary status to MHU for stabilization of psychiatric symptoms and safety. Patient has signed adult voluntary form and medication consent and is placed in patient's chart. -Medications: Restart Depakote 250 mg daily in the morning and 500 mg at bedtime for mood stabilization. Restart Zyprexa 5 mg daily in the morning and 10 mg at bedtime for psychosis and mood stabilization. -Ativan and Haldol PRN for agitation/aggression -Patient was counselled on substance abuse and desired to cut back on use. -Patient was informed of the risks, benefits and side effects of the medication and patient verbally consented to taking the medications. Patient signed med consent form and was placed in chart. -Internal Medicine consult to perform medical evaluation and physical. -NRT - nicotine patch - on board for discharge planning. Encourage patient to participate in groups to work on coping skills. Allergies Allergy/AdvReac Type Severity Reaction Status Date / Time haloperidol [From Haldol] Allergy Unknown Verified 01/27/22 23:21 Vital Signs Temp 97.9 F 02/08/22 04:17 Pulse 101 H 02/08/22 08:23 Resp 18 02/08/22 04:17 BP 134/76 02/08/22 08:23 Pulse Ox 99 02/08/22 04:17 FiO2 Intake & Output 02/07/22 02/08/22 02/08/22 18:59 06:59 18:59 Weight 65.7 kg Laboratory Last Values Estimated Ave Glu mg/dL 107 02/08/22 07:17 Hemoglobin A1c 5.4 % (0.0-6.0) 02/08/22 07:17 Triglycerides 53.70 mg/dL (0.00-149.00) 02/08/22 07:17 Cholesterol 135.00 mg/dL (0.00-200.00) 02/08/22 07:17 LDL Cholesterol, Calc 76.9 mg/dL (0.0-131.0) 02/08/22 07:17 VLDL Cholesterol, Calc 10.74 mg/dL (5.00-40.00) 02/08/22 07:17 HDL Cholesterol 47.40 mg/dL (40.00-60.00) 02/08/22 07:17 Cholesterol/HDL Ratio 2.85 Ratio 02/08/22 07:17 TSH 2.340 mIU/L (0.465-4.680) 02/08/22 07:17 02/08/22 14:45
[2022-02-08] MEDS: OLANZapine 5 MG TAB PO SCH (20:08)
[2022-02-08] MEDS ORDERED: DIVALPROEX 500 MG TABLET.DR PO SCH (21:00)
[2022-02-09] MEDS ORDERED: DIVALPROEX 250 MG TABLET.DR PO SCH (09:00)
[2022-02-09] MEDS: NICOTINE 14MG/24HR PATCH TRANSDERM SCH (09:28)
--- NOTE | 2022-02-09 12:53 | P.PN ---
Progress Note - Text Progress Note Date: 02/09/22 Interval History: Patient was seen wandering the hallways and was directable and agreeable to speak with automatic typewriter inspector in the office. Patient claims that he is doing a bit better today. He spoke about using drugs once again "to get me into this mess". He states that he wants to go to rehab again and mentioned [facility]. He states that he feels he is doing better back on the medications at this time. He claims that she would like to have his Depakote switched to take the heavier dose in the morning and later dose at nighttime. He states that he is able to sleep throughout the night and denying any other side effects. Claims that he is going to some groups. At this time patient denies any suicidal or homical ideations, intent or plan. Patient denies any auditory, visual hallucinations and denies any paranoia or delusions. Patient denies any side effects from the medications and has been compliant with meds. Mental Status Exam: General Appearance: Patient appears to be stated age, has a 1-inch abrasion on his forehead, dressed in sweats, fair hygiene and grooming. Behavior: Patient is seated without any agitated behavior, more cooperative today. Speech: Patient's speech is fluent and pressured. Mood/Affect: Patient reports their mood is "fine" but appears .less irritable, affect is congruent and constricted. Suicidality/Homicidality: Patient denies having any homicidal ideation intent or plan. Denies any suicidal ideations, intent or plan. Perceptions: Patient denies any visual hallucinations and denies any auditory hallucinations Thought process: Rambling, more goal oriented today. Not endorsing any delusions. Though content/process: There is no evidence of paranoid delusional thought content. Memory and concentration: AOX3, grossly intact for the purposes of this session. Judgment and insight: Poor, improving mildly IMPRESSIONS: Schizoaffective disorder, bipolar type Cocaine use disorder Cannabis use disorder Nicotine dependence Plan: -Patient continues to meet criteria for inpatient psychiatric admission for symptom stabilization and safety. Patient has signed adult voluntary form and medication consent and was placed in patient's chart. -Medications: Change Depakote to 500 mg daily +250 mg daily at bedtime for mood stabilization, Zyprexa 10 mg daily at bedtime for psychosis/mood stabilization. -When necessary Ativan and Haldol for agitation/aggression. -NRT - nicotine patch -SW on board for discharge planning. Encouraged the patient to participate in milieu. Patient claims that he wants to go to rehab once again and currently waiting on a response from [facility].
--- NOTE | 2022-02-09 13:24 | P.CONS ---
History of Present Illness - Reason for Consult Consult date: 02/09/22 - History of Present Illness Patient is a 26-year-old male with no significant past medical history is transferred from [facility] for behavioral disturbances. He has been admitted to the mental health unit for further management of symptoms. [facility] has been consulted for medical management this patient. Patient reports oral lesions. He is requesting to be screened for HIV and other STDs. He denies any urethral discharge. He denies any headache, lower extremity edema, nausea or vomiting, fever or chills, cough, chest pain, shortness of breath, palpitations, changes in urination or bowel habits. No changes in appetite or weight. He denies any dizziness, numbness/weakness/tingling of the extremities. Patient reports smoking half pack of cigarettes daily. He denies any alcohol use. He reports a history of crack cocaine, heroin and MDMA in the past. Last use was 1.5 months ago. Review of systems is performed and is negative except above. General: non toxic, no distress, appears at stated age Derm: warm, dry, lesions noted on the posterior neck and armpits with tracts Head: atraumatic, normocephalic, symmetric Eyes: EOMI, no lid lag, anicteric sclera Cardiovascular: S1S2 reg, no murmur, positive posterior tibial pulse bilateral Lungs: CTA bilateral, no rhonchi, no rales , no accessory muscle use Abdominal: soft, nontender to palpation, no guarding, no appreciable organomegaly Ext: no gross muscle atrophy, no edema, no contractures Neuro: CN II-XI grossly intact, no focal neuro deficits Psych: Alert, oriented, appropriate affect #Oral lesions #Nicotine abuse #History of crack cocaine, heroin and MDMA abuse HIV testing will be ordered. Testing for syphilis and hepatitis panel ordered. Gonorrhea and chlamydia urine test ordered. Patient has been offered a nicotine patch. Patient is advised to quit illicit substance abuse. Thank you for this consultation. Please call [facility] with additional questions or concerns. Past Medical History Past Medical History: No Reported History History of Any Multi-Drug Resistant Organisms: None Reported Past Surgical History: No Surgical Hx Reported Past Anesthesia/Blood Transfusion Reactions: No Reported Reaction Smoking Status: Current every day smoker Past Alcohol Use History: Daily Additional Past Alcohol Use History / Comment(s): Pt refused to answer alcohol questions. Past Drug Use History: None Reported - Past Family History Family Additional Family Medical History / Comment(s): Denies any history of coronary artery disease Medications and Allergies Home Medications Medication Instructions Recorded Confirmed Type Divalproex [Depakote] 250 mg PO DAILY 30 Days tab 02/02/22 Rx Divalproex [Depakote] 500 mg PO HS 30 Days tab 02/02/22 Rx Multivitamins, Thera [Multivitamin 1 each PO DAILY 30 Days tab 02/02/22 Rx (formulary)] Nicotine 14Mg/24Hr Patch [Habitrol] 1 patch TRANSDERM DAILY 30 Days 02/02/22 Rx patch OLANZapine [ZyPREXA] 5 mg PO DAILY 30 Days tab 02/02/22 Rx OLANZapine [ZyPREXA] 10 mg PO HS 30 Days tab 02/02/22 Rx Allergies Allergy/AdvReac Type Severity Reaction Status Date / Time haloperidol [From Haldol] Allergy Unknown Verified 01/27/22 23:21
[2022-02-09] MEDS: OLANZapine 5 MG TAB PO SCH ×2 (14:40→20:57)
[2022-02-09] MEDS: MULTIVITAMINS, THERA 1 EACH TAB PO SCH (14:41)
[2022-02-09 18:04] LABS: Hepatitis A Antibody IgM Nonreactive (Nonreactive); Hepatitis B Core IgM Nonreactive (Nonreactive); Hepatitis B Surface Antigen Nonreactive (Nonreactive); Hepatitis C IgG Antibody Nonreactive (Nonreactive)
[2022-02-09 18:21] LABS: HIV 2 AB Non-Reactive (Non-Reactive); HIV AB P24 Non-Reactive (Non-Reactive); HIV P24 AG Non-Reactive (Non-Reactive)
[2022-02-09] MEDS: DIVALPROEX 250 MG TABLET.DR PO SCH (20:57)
[2022-02-10 06:48] VITALS: RESP 16
[2022-02-10] MEDS: NICOTINE 14MG/24HR PATCH TRANSDERM SCH (08:39)
[2022-02-10] MEDS: MULTIVITAMINS, THERA 1 EACH TAB PO SCH (08:39)
[2022-02-10] MEDS: DIVALPROEX 500 MG TABLET.DR PO SCH (08:39)
[2022-02-10] MEDS: OLANZapine 5 MG TAB PO SCH ×2 (08:40→20:15)
[2022-02-10] MEDS ORDERED: NICOTINE GUM (POLACRILEX) 2 MG GUM BUCCAL PRN (12:03)
--- NOTE | 2022-02-10 12:06 | P.PN ---
Progress Note - Text Progress Note Date: 02/10/22 Interval History: Patient was seen wandering the hallways and was directable and agreeable to ken carlos with rfp writer in the office. Patient claims that he is doing a bit better today claims that his anxiety and mood have been improving. He states that he does he do stop using drugs and is motivated to go to [facility] tomorrow. He claims he did get accepted and is happy about that. He claims that he spoke with his mother yesterday who is agreeable to this plan. He states that he is going to some groups and trying to participate. He was requesting to have nicotine gum as well added for his cravings. He claims that he was able to sleep fairly last night and likes the medications away they are prescribed at this time. At this time patient denies any suicidal or homical ideations, intent or plan. Patient denies any auditory, visual hallucinations and denies any paranoia or delusions. Patient denies any side effects from the medications and has been compliant with meds. Mental Status Exam: General Appearance: Patient appears to be stated age, has a 1-inch abrasion on his forehead, dressed in sweats, fair hygiene and grooming. Behavior: Patient is seated without any agitated behavior, more cooperative today. Speech: Patient's speech is fluent and pressured. Mood/Affect: Patient reports their mood is "good" but appears, less irritable, affect is congruent and constricted. Suicidality/Homicidality: Patient denies having any homicidal ideation intent or plan. Denies any suicidal ideations, intent or plan. Perceptions: Patient denies any visual hallucinations and denies any auditory hallucinations Thought process: Rambling, more goal oriented today. Not endorsing any de lusions. Though content/process: There is no evidence of paranoid delusional thought content. Memory and concentration: AOX3, grossly intact for the purposes of this session. Judgment and insight: improving mildly IMPRESSIONS: Schizoaffective disorder, bipolar type Cocaine use disorder Cannabis use disorder Nicotine dependence Plan: -Patient continues to meet criteria for inpatient psychiatric admission for symptom stabilization and safety. Patient has signed adult voluntary form and medication consent and was placed in patient's chart. -Medications: Depakote 500 mg daily + 250 mg daily at bedtime for mood stabilization, Zyprexa 10 mg daily at bedtime for psychosis/mood stabilization +5 mg daily. -When necessary Ativan and Haldol for agitation/aggression. -NRT - nicotine patch and gum. -SW on board for discharge planning. Encouraged the patient to participate in milieu. Patient will be discharged to rehab tomorrow at [facility].
[2022-02-10] MEDS: DIVALPROEX 250 MG TABLET.DR PO SCH (20:15)
[2022-02-11 07:03] VITALS: BP 108/55; PULSE 93; TEMP 97.5
[2022-02-11] MEDS: NICOTINE 14MG/24HR PATCH TRANSDERM SCH (08:26)
[2022-02-11] MEDS: DIVALPROEX 500 MG TABLET.DR PO SCH (08:26)
[2022-02-11] MEDS: OLANZapine 5 MG TAB PO SCH (08:26)
[2022-02-11] MEDS: MULTIVITAMINS, THERA 1 EACH TAB PO SCH (08:26)
--- NOTE | 2022-02-11 09:59 | P.DS ---
Providers Date of admission: 02/07/22 12:45 Expected date of discharge: 02/11/22 Attending physician: Jose Antonio Kahn MD Consults: 02/06/22 19:38 Consult Physician Routine Consulting Provider: Fernando Fraser Consult Reason/Comments: H and P Do you want consulting provider notified?: Yes Primary care physician: Stated None - Discharge Diagnosis(es) (1) Schizoaffective disorder, bipolar type Current Visit: Yes Status: Acute Priority: High (2) Cocaine use disorder Current Visit: Yes Status: Acute Priority: High (3) Cannabis use disorder Current Visit: Yes Status: Acute Priority: Medium (4) Nicotine dependence Current Visit: Yes Status: Acute Priority: Low Hospital Course: Admission HPI: Admission note was completed by Dr Martinez "Patient is a single, unemployed on SSI, homeless 26-year-old male with significant history of polysubstance abuse and schizoaffective disorder. Patient presented to the [facility] as a transfer from [facility] under petition and certification for psychotic behavior. Per petition, "patient told the deputy who brought him to the ER that he is suicidal and homicidal. Patient is responding to internal stimuli. Patient is intermittently laughing, smiling, and speaking nonsense." Per initial certification, "Patient exhibits psychosis. Responding to internal stimuli. Labile mood. Pressured and tangential speech. Poor insight and judgment." On arrival to the unit he was restarted on Depakote 250 mg 3 times daily. I evaluated patient today, and he appears to be a fair historian, peers to be minimizing his psychotic and manic symptoms in an attempt to be discharged today. His speech is mildly pressured, and he appears to be engaged in self dialogue as he mumbles repeatedly to himself. His thought process consists of loose associations and is difficult to follow. He is irritable and focused on discharge. He was recently admitted to our MHU from 01/28-02/03/22 for psychosis and was discharged on Depakote 250 mg daily in the morning and 500mg QHS, and Zyprexa 5 mg daily in the morning and 10 mg QHS for psychosis. He went sent to [facility] for residential substance abuse treatment following discharge, however he reports he left [facility] after two days because it "didn't fit him". He states he went to [facility] where he is "homeless". He claims he was compliant with his medications this entire time however this is unlikely given the severity of his symptoms. He reports he was using "weed" that he believed was laced with something. He reports he "blacked out" but that he "didn't have any blood on his hands and wasn't in anyone's house" so therefore he does not need to be admitted her for mental health treatment. He derails into other nonsensical dialogue and stats "I believe the body works on its own..." At this time, he denies any suicidal or homicidal ideations, intent or plan. At this time, patient denies any auditory or visual hallucinations, however he does appear to be attending to internal stimuli. Patient admits to using marijuana that is be believes was laced with something. He has a 1-inch abrasion on his forehead but he refuses to state how he got that. He asks for a compliant form so he can write a complaint for the marijuana that was confiscated from him (unclear when this happened)." Hospital course: Upon admission to the unit patient was directable and agreeable to commence treatment and signed adult voluntary form. Patient got along well with other patients on the unit and followed unit protocol. Patient was compliant with the medications and denied any side effects throughout hospital course. Patient was started on Depakote 500 mg daily +250 mg daily at bedtime for mood stabilization, Zyprexa 10 mg daily at bedtime +5 mg daily for mood stabilization saw psychosis. Patient spoke of his stressors and engaged in therapy both group and individual. Patient was also seen by medical team for history and physical exam. Throughout the course of the hospitalization patient gradually improved with regards to mood, anxiety, psychosis, sleep and returned back to their baseline level of functioning. On the day of discharge patient denied any suicidal or homicidal ideations intent or plan denied any auditory or visual hallucinations. Patient endorsed wanting to live for his health, to get a job in his sobriety. The patient denied any access to guns or weapons. Patient denied any paranoia and did not endorse any delusions. Patient does have a significant history of substance abuse and was counseled on abstaining from all substances including alcohol and marijuana. Patient will be going to [facility] for inpatient rehab today. Patient was also counseled on the medications and need for regular compliance and was encouraged to follow-up with their outpatient appointment for mental health and also for primary care. Prior to discharge a family meeting will be arranged by social worker clinical to answer any questions and ensure safety upon discharge. Mental status exam: General Appearance: Patient appears to be stated age is alert, pleasant, and cooperative. Patient is in no acute distress and has improved hygiene and grooming Behavior: Patient is calmly seated without any agitated behavior. Speech: Patient's speech is fluent and nonpressured. Mood/Affect: Patient reports their mood is "better", affect is congruent and euthymic. Suicidality/Homicidality: Patient denies having any suicidal or homicidal ideation intent or plan. Perceptions: Patient denies any auditory or visual hallucinations. Though content/process: There is no evidence of any delusional thought content and thought process is linear and goal-directed. more future oriented Memory and concentration: AOX3, grossly intact for the purposes of this session. Can spell "WORLD" backwards correctly. Judgment and insight: chronically poor, however has improved with guarded prognosis Impression: Schizoaffective disorder, bipolar type Cocaine use disorder Cannabis use disorder Nicotine dependence Plan: -Continue with discharge today as patient has improved and stabilized psychiatrically and is not currently an imminent threat to himself and/or others. Patient will remain at chronically elevated risk for harm to self and/or others due to his impulsivity and polysubstance abuse. -Continue medications: Depakote 500 mg daily plus 250 mg daily at bedtime for mood stabilization, Zyprexa 5 mg daily +10 mg daily at bedtime -Patient was counseled on the need for medication compliance and appropriate follow-up at mental health and also primary care for medical issues. Patient verbalized understanding and agreed. -Social work to arrange for and conduct family meeting to ensure safety upon discharge and answer any questions/concerns. Patient will be discharged today to [facility] for inpatient rehab. Social work also to arrange for patients follow up appointments with [facility] for psychiatric care along with follow up with primary care provider. -Patient counseled on abstaining from recreational drugs and marijuana and alcohol. Was informed/educated on the adverse effects on their physical and mental health. Patient verbally agreed and understood. -Patient was instructed to return to the hospital or seek immediate medical care if their psychiatric or medical symptoms do worsen or reoccur. Allergies Allergy/AdvReac Type Severity Reaction Status Date / Time haloperidol [From Haldol] Allergy Unknown Verified 01/27/22 23:[address] Glu mg/dL 107 02/08/22 07:17 Hemoglobin A1c 5.4 % (0.0-6.0) 02/08/22 07:17 Triglycerides 53.70 mg/dL (0.00-149.00) 02/08/22 07:17 Cholesterol 135.00 mg/dL (0.00-200.00) 02/08/22 07:17 LDL Cholesterol, Calc 76.9 mg/dL (0.0-131.0) 02/08/22 07:17 VLDL Cholesterol, Calc 10.74 mg/dL (5.00-40.00) 02/08/22 07:17 HDL Cholesterol 47.40 mg/dL (40.00-60.00) 02/08/22 07:17 Cholesterol/HDL Ratio 2.85 Ratio 02/08/22 07:17 TSH 2.340 mIU/L (0.465-4.680) 02/08/22 07:17 Treponema pallidum Ab Nonreactive (Nonreactive) 02/09/22 07:17 Hepatitis A IgM Ab Nonreactive (Nonreactive) 02/09/22 07:17 Hep Bs Antigen Nonreactive (Nonreactive) 02/09/22 07:17 Hep B Core IgM Ab Nonreactive (Nonreactive) 02/09/22 07:17 Hep C IgG Ab Nonreactive (Nonreactive) 02/09/22 07:17 HIV-1 Antibody Non-Reactive (Non-Reactive) 02/09/22 07:17 HIV Ag/Ab Interpret 02/09/22 07:17 HIV p24 Antibody Non-Reactive (Non-Reactive) 02/09/22 07:17 HIV-2 Antibody Non-Reactive (Non-Reactive) 02/09/22 07:17 HIV P24 Antigen Non-Reactive (Non-Reactive) 02/09/22 07:17 Vital Signs Temp 97.5 F L 02/11/22 06:37 Pulse 93 02/11/22 06:37 Resp 16 02/11/22 06:37 BP 108/55 02/11/22 06:37 Pulse Ox 97 02/10/22 05:15 FiO2 Patient Condition at Discharge: Stable Plan - Discharge Summary Discharge Rx Participant: Yes New Discharge Prescriptions: New Nicotine Gum (Polacrilex) [Nicorette] 2 mg BUCCAL Q4HR PRN 28 Days pieceofgum PRN Reason: Nicotine Cravings OLANZapine [ZyPREXA] 5 mg PO DAILY 30 Days tab OLANZapine [ZyPREXA] 10 mg PO HS 30 Days tab Divalproex [Depakote] 250 mg PO HS 30 Days tab Divalproex [Depakote] 500 mg PO DAILY 30 Days tab Nicotine 14Mg/24Hr Patch [Habitrol] 1 patch TRANSDERM DAILY 14 Days patch Continue Multivitamins, Thera [Multivitamin (formulary)] 1 each PO DAILY 30 Days tab Discontinued Divalproex [Depakote] 500 mg PO HS 30 Days tab Divalproex [Depakote] 250 mg PO DAILY 30 Days tab OLANZapine [ZyPREXA] 10 mg PO HS 30 Days tab OLANZapine [ZyPREXA] 5 mg PO DAILY 30 Days tab Nicotine 14Mg/24Hr Patch [Habitrol] 1 patch TRANSDERM DAILY 30 Days patch Discharge Medication List Divalproex [Depakote] 250 mg PO HS 30 Days tab 02/11/22 [Rx] Divalproex [Depakote] 500 mg PO DAILY 30 Days tab 02/11/22 [Rx] Multivitamins, Thera [Multivitamin (formulary)] 1 each PO DAILY 30 Days tab 02/11/22 [Rx] Nicotine 14Mg/24Hr Patch [Habitrol] 1 patch TRANSDERM DAILY 14 Days patch 02/11/22 [Rx] Nicotine Gum (Polacrilex) [Nicorette] 2 mg BUCCAL Q4HR PRN 28 Days pieceofgum 02/11/22 [Rx] OLANZapine [ZyPREXA] 5 mg PO DAILY 30 Days tab 02/11/22 [Rx] OLANZapine [ZyPREXA] 10 mg PO HS 30 Days tab 02/11/22 [Rx] Follow up Appointment(s)/Referral(s): Kunal Haji [Other] - 02/11/22 2:00 pm Activity/Diet/Wound Care/Special Instructions: Avoid the use of street drugs and alcohol. Take all prescriptions as prescribed. When you are in need of refills on your medications, please contact your medical provider and/or outpatient psychiatrist to have this done. Please go to scheduled outpatient appointment for aftercare treatment. If symptoms return or become worse, call the crisis line at and/or go to the nearest emergency room for evaluation. Discharge Disposition: OTHER INSTITUTION NOT DEFINED
== END 2022-02-11 13:40 | disposition other institution (70) | DRG 885 ==
LOC: 3MHU 02-07 12:45
PROVIDERS: ADMIT Psychiatry & Neurology Psychiatry; ATTEND Psychiatry & Neurology Psychiatry
DX: F25.0 Schizoaffective disorder, bipolar type (principal); R45.851 Suicidal ideations; S00.81XA Abrasion of other part of head, initial encounter; F12.10 Cannabis abuse, uncomplicated; F14.10 Cocaine abuse, uncomplicated; F17.210 Nicotine dependence, cigarettes, uncomplicated; F41.9 Anxiety disorder, unspecified; Z79.899 Other long term (current) drug therapy; Z88.8 Allergy status to other drugs, medicaments and biological substances; Z71.6 Tobacco abuse counseling; Z71.51 Drug abuse counseling and surveillance of drug abuser
CPT/HCPCS: 80061; 80074; 83036; 84443; 86780; 87390